=== PATIENT | male | born 1980 | race Caucasian/White ===

== ENCOUNTER 2023-11-10 06:58 | Emergency (ER) | payer BC, SELFPAY ==
[2023-11-10 07:12] VITALS: BP 127/82
[2023-11-10 08:16] VITALS: BP 132/86
[2023-11-10 08:18] VITALS: BMI 25.8
--- NOTE | 2023-11-10 08:44 | ED.GENMED ---
History of Present Illness
<Roni William, DO - Last Filed: 11/10/23 11:10>
General
Chief Complaint: Musculo-Skeletal Complaint
Source: patient
Exam Limitations: none
Time Seen by Provider: 11/10/23 08:24
Nursing documentation reviewed up to this point in time: agreed with
Travel History
Have you had any contact with someone who has COVID-19?: No
Do you have any symptoms of coronavirus? Fever > 100 degrees, chills, cough, shortness of breath, sore throat, loss of taste or smell, muscle aches, or headache?: No
History of Present Illness
History of Present Illness:
43-year-old male presents emergency room complaining of left arm infection. He started Keflex yesterday after being seen at urgent care. He states it is more swollen now. He denies any injury.
Past History
<Roni William, DO - Last Filed: 11/10/23 11:10>
Past History
ED Past Medical History: GERD
ED Past Surgical History: None
Social History
Tobacco: Non-smoker
Alcohol: None
Drug: None
Living: with family
Employment: Employed
Review of Systems
<Roni William, DO - Last Filed: 11/10/23 11:10>
Review of Systems
Allergies reviewed?: Yes
All Other Systems: Not applicable
Constitutional: Reports no symptoms
EENT: Reports no symptoms
Respiratory: Reports no symptoms
Cardiac: Reports no symptoms
ABD/GI: Reports no symptoms
: Reports no symptoms
Musculoskeletal: Reports joint swelling
Skin: Reports rash
Neurological: Reports no symptoms
Endocrine: Reports no symptoms
Hematologic/Lymphatic: Reports no symptoms
Psychiatric: Reports no symptoms
Phy Exam
<Roni William, DO - Last Filed: 11/10/23 11:10>
Physical Exam
Physical Exam:
Physical Exam
General: no apparent distress, not acutely ill
Neck: supple. no meningeal signs. normal posterior pharynx
Heart: s1/s2 regular rate and rhythm, no murmur. equal radial
pulses.
HEENT: Pupils equal round reactive to light, EOMI
Lungs: no acute respiratory distress. clear bilaterally
Abdomen: normal bowel sounds. not tender. no CVAT
Neuro: alert and oriented. no focal neurological deficits cranial nerves II through XII intact
Skin: no rash, erythema left elbow
Psychiatric: well kept. interactive and cooperative
Extremities: Edema and swelling left elbow, olecranon bursa. no calf tenderness. negative homans. good distal pulses
Course
<Roni William, DO - Last Filed: 11/10/23 11:10>
Orders/Labs/Results
Orders:
Orders
11/10/23 08:30
Complete Blood Count/With Diff Urgent
Comprehensive Metabolic Panel Urgent
Lactic Acid Urgent
Blood Culture Urgent
DELMY Source: Blood/Venous
Specimen Description:
Blood Culture Urgent
DELMY Source: Blood/Venous
Specimen Description:
11/10/23 09:11
Body Fluid Cell Count Urgent
What is the Body Fluid: left olecranon bursa
Date Specimen was Collected: 11/10/23
Time Specimen was Collected: 08:54
Fluid Culture with Gram Stain Urgent
DELMY Source: Bursa
Specimen Description:
Date Specimen was Collected: 11/10/23
Time Specimen was Collected: 08:54
Abnormal Lab Results
11/10/23
08:30
Absolute Neuts (auto) 8.1 H 10^3/uL
(1.4-6.5)
Absolute Monos (auto) 0.7 H 10^3/uL
(0.1-0.6)
Neutrophils % 75.5 H %
(42.2-75.2)
Lymphocytes % 16.3 L %
(20.5-51.1)
Glucose 108 H mg/dl
(70-99)
11/10/23 08:30
11/10/23 08:30
Vital Signs
Initial and Last Documented VS:
Initial Vital Signs
Temp Pulse Resp BP Pulse Ox
98.1 F 94 18 127/82 96
11/10/23 07:12 11/10/23 07:12 11/10/23 07:12 11/10/23 07:12 11/10/23 07:12
Last Documented Vital Signs
Temp Pulse Resp BP Pulse Ox
98.3 F 94 18 120/88 95
11/10/23 11:16 11/10/23 07:12 11/10/23 07:12 11/10/23 11:00 11/10/23 08:18
<Arley Everett PA-C - Last Filed: 11/13/23 09:36>
Orders/Labs/Results
Orders:
Orders
11/10/23 08:30
Complete Blood Count/With Diff Urgent
Comprehensive Metabolic Panel Urgent
Lactic Acid Urgent
Blood Culture Urgent
DELMY Source: Blood/Venous
Specimen Description:
Blood Culture Urgent
DELMY Source: Blood/Venous
Specimen Description:
11/10/23 09:11
Body Fluid Cell Count Urgent
What is the Body Fluid: left olecranon bursa
Date Specimen was Collected: 11/10/23
Time Specimen was Collected: 08:54
Fluid Culture with Gram Stain Urgent
DELMY Source: Bursa
Specimen Description:
Date Specimen was Collected: 11/10/23
Time Specimen was Collected: 08:54
Abnormal Lab Results
11/10/23
08:30
Absolute Neuts (auto) 8.1 H 10^3/uL
(1.4-6.5)
Absolute Monos (auto) 0.7 H 10^3/uL
(0.1-0.6)
Neutrophils % 75.5 H %
(42.2-75.2)
Lymphocytes % 16.3 L %
(20.5-51.1)
Glucose 108 H mg/dl
(70-99)
11/10/23 08:30
11/10/23 08:30
Vital Signs
Initial and Last Documented VS:
Initial Vital Signs
Temp Pulse Resp BP Pulse Ox
98.1 F 94 18 127/82 96
11/10/23 07:12 11/10/23 07:12 11/10/23 07:12 11/10/23 07:12 11/10/23 07:12
Last Documented Vital Signs
Temp Pulse Resp BP Pulse Ox
98.3 F 94 18 120/88 95
11/10/23 11:16 11/10/23 07:12 11/10/23 07:12 11/10/23 11:00 11/10/23 08:18
Procedures
<Arley Everett PA-C - Last Filed: 11/13/23 09:36>
Incision/Drainage/Joint Aspiration
Left Elbow:
Anethesia: 1% Lidocaine
Preparation: cleaned with Betadine
Type of procedure: aspiration
Nature of site: other (bursa)
Description of abscess: involves one area
Loculations broken up: No
How much fluid was obtained?: large amount
Fluid description: straw colored and blood tinged
Treatment: bandaid applied
<Roni William DO - Last Filed: 11/10/23 11:10>
MDM/Problems Addressed
Differential Diagnosis Includes:
Septic bursitis, cellulitis
MDM/Problems Addressed:
43-year-old male with bursitis, possible overlying cellulitis. Bursa does not appear septic based on cell count evaluation. Culture sent. Will add Bactrim and follow-up with orthopedics. Return precautions given.
<Roni William DO - Last Filed: 11/10/23 11:10>
*Pulse Oximetry
Patient hypoxic: no
*EKG
Interpreted by ED Provider?: NA
*Billboard Poster Helper Interpretation
Rate: Billboard Poster Helper- N/A
*Critical Care Note
Total Time (30-74mins, 75-104mins- exclusive of procedures): Not Applicable
<Roni William, DO - Last Filed: 11/10/23 11:10>
Patient Management
Social determinants of health affecting care: Living situation
Escalation/DeEscalation of care consider admission/obs:
Admit not indicated
<Arley Everett PA-C - Last Filed: 11/13/23 09:36>
Update Note
Update Note:
Left elbow bursa was aspirated under sterile conditions this was done after Betadine was used to prep the skin. An 18-gauge needle was used to aspirate the fluid from the olecranon bursa. Approximately 4 mL clear slightly blood-tinged fluid was
aspirated a Band-Aid was then applied.
November 13, 2023, 9:35 AM: Elbow fluid culture results received and demonstrate presumptive Staphylococcus aureus in the fluid culture. This is an appointment and resolved. Patient was placed on Bactrim at the time of his visit. Called patient to
relay this information however there was no answer. Left message to call back.
ED Attending Note
<Roni William DO - Last Filed: 11/10/23 11:10>
-
Portions of this chart may have been created with voice recognition software.� Occasional wrong word or��sound alike� substitutions may have occurred due to the inherent limitations of voice recognition software.
Discharge Plan
Departure
Patient Disposition: Home (Routine Discharge)
Date of Disposition: 11/10/23
Time of Disposition: 11:03
Patient with high blood pressure during this ER visit?: No
Condition: Good
Discharge Problem:
Olecranon bursitis of left elbow
Instructions: Bursitis (DC), BLOOD PRESSURE
Prescriptions:
New
sulfamethoxazole-trimethoprim [Bactrim DS] 800-160 mg tablet
1 tab PO BID Qty: 14 0RF
Referrals:
Titus Byrd MD [Active] - Call in 1-3 days for appt
Nelson Portillo MD [Family Provider] - Call in 1-3 days for appt
Interventions
Interventions:
*Risk Screen - Suicide Last Done: 11/10/23 08:18
*General Assessment Last Done: 11/10/23 08:18
*Neglect/Abuse Screening Last Done: 11/10/23 08:18
ED- Fall Risk Assessment Last Done: 11/10/23 08:18
*ED COVID-19 Vaccine History Last Done: 11/10/23 08:18
*Nursing Disposition Last Done: 11/10/23 11:16
ED-Musculoskeletal Assessment Last Done: 11/10/23 08:18
Discharge Date and Time
Discharge Date/Time: 11/10/23 11:17
Print Language: KOREAN
[2023-11-10 08:45] LABS: % Basophils 0.4 % (0-2); % Eosinophils 0.6 % (0-6); % Immature Granulocytes 0.3 % (0-0.5); % Lymphocytes 16.3 % (20.5-51.1); % Monocytes 6.9 % (1.7-9.3); % Neutrophils 75.5 % (42.2-75.2); Absolute Eosinophils 0.1 10^3/uL (0-0.7); Absolute Lymphocytes 1.8 10^3/uL (1.2-3.4); Absolute Monocytes 0.7 10^3/uL (0.1-0.6); Absolute Neutrophils 8.1 10^3/uL (1.4-6.5); Hematocrit 40.9 % (39.0-52.0); Hemoglobin 14.4 g/dL (13.0-18.0); Mean Corp Hgb Conc. 35.2 g/dL (33.0-37.0); Mean Corpuscular Hgb 29.4 pg (27.0-31.0); Mean Corpuscular Volume 83.6 fL (80.0-94.0); Mean Platelet Volume 10.2 fL (7.4-10.4); Nucleated Red Blood Cells % 0 % (-); Platelet Count 233 10^3/uL (130-400); Red Blood Cell Count 4.89 10^6/uL (4.70-6.10); White Blood Cell Count 10.7 10^3/uL (4.8-10.8)
[2023-11-10 08:56] LABS: ALT (SGPT) 37 U/L (0-50); AST (SGOT) 26 U/L (17-59); Albumin 4.6 g/dl (3.5-5.0); Alkaline Phosphatase 73 U/L (38-126); Blood Urea Nitrogen 19 mg/dl (9-20); Calcium 9.9 mg/dl (8.4-10.2); Carbon Dioxide 25 mmol/L (22-30); Chloride 102 mmol/L (98-107); Estimated Creatinine Clearance > 125 ml/min; Glucose 108 mg/dl (70-99); Lactic Acid 1.7 mmol/L (0.7-2.0); Potassium 4.1 mmol/L (3.5-5.1); Sodium 136 mmol/L (135-145); Total Bilirubin 0.7 mg/dl (0.2-1.3); Total Protein 7.4 g/dl (6.3-8.2); eGFR > 60.00
[2023-11-10 09:00] VITALS: BP 123/88
[2023-11-10 10:00] VITALS: BP 116/84
[2023-11-10 10:26] LABS: Body Fluid Mononuclear 9.6 %; Body Fluid Polymorphonuclear 90.4 %; Body Fluid WBC 1977 /CUMM
[2023-11-10 10:32] LABS: Body Fluid Second Tech EF
[2023-11-10 11:00] VITALS: BP 120/88
== END 2023-11-10 11:17 | disposition home or self-care (01) ==
LOC: EMR 06:58
PROVIDERS: EMERGENCY PHYSICIAN Emergency Medicine; FAMILY PHYSICIAN Family Medicine
DX: M70.22 Olecranon bursitis, left elbow (principal); K21.9 Gastro-esophageal reflux disease without esophagitis
CPT/HCPCS: 99283; 10060; 80053; 83605; 85025; 87015; 87040; 87070; 87147; 87186; 87205; 89051

== ENCOUNTER 2025-07-18 06:20 | Day surgery (SDC) | payer BC, SELFPAY | END 2025-07-18 10:35 | disposition home or self-care (01) | LOC: GI 06:20 | PROVIDERS: ATTENDING PHYSICIAN Internal Medicine | DX: Z12.11 Encounter for screening for malignant neoplasm of colon (principal); D12.2 Benign neoplasm of ascending colon; D12.3 Benign neoplasm of transverse colon; K63.5 Polyp of colon; K57.30 Diverticulosis of large intestine without perforation or abscess without bleeding; K62.1 Rectal polyp; K62.89 Other specified diseases of anus and rectum; Z83.719 Family history of colon polyps, unspecified; Z15.09 Genetic susceptibility to other malignant neoplasm | CPT/HCPCS: 45385; 45380; 88305 ==